=== PATIENT | male | born 1985 | race Caucasian/White ===

== ENCOUNTER 2018-04-29 19:37 | Emergency (ER) | payer MEDICAID ==
[~2018-04-29] VITALS: Ht 182.9 cm; Wt 74.4 kg
[~2018-04-29 19:37] MED LIST: OXYC15TA60 PO
[2018-04-29 19:48] VITALS: BP 120/72
== END 2018-04-29 20:13 | disposition home or self-care (01) ==
LOC: ED 20:07
DX: K02.9 Dental caries, unspecified (principal)
CPT/HCPCS: 99283

== ENCOUNTER 2018-05-20 18:10 | Emergency (ER) | payer MEDICAID ==
[~2018-05-20] VITALS: Ht 182.9 cm; Wt 75.0 kg
[2018-05-20 18:32] VITALS: BP 144/80
[2018-05-20] MEDS ORDERED: KETOROLAC 30 MG/1 ML IM ONE (19:00)
[2018-05-20] MEDS ORDERED: METHOCARBAMOL 750 MG TABLET PO ONE (19:00)
[2018-05-20] MEDS ORDERED: METHOCARBAMOL 750 MG TABLET ONE (19:19)
[2018-05-20] MEDS ORDERED: KETOROLAC 30 MG/1 ML ONE (19:19)
== END 2018-05-20 19:46 | disposition home or self-care (01) ==
LOC: ED 19:40
DX: S39.012A Strain of muscle, fascia and tendon of lower back, initial encounter (principal); X58.XXXA Exposure to other specified factors, initial encounter; Y93.89 Activity, other specified; Y92.89 Other specified places as the place of occurrence of the external cause; Y99.8 Other external cause status; M46.1 Sacroiliitis, not elsewhere classified
CPT/HCPCS: 72110; 96372; 99284; J1885

== ENCOUNTER 2018-06-08 19:13 | Emergency (ER) | payer MEDICAID ==
[~2018-06-08] VITALS: Ht 182.9 cm; Wt 72.9 kg
[2018-06-08 19:16] VITALS: BP 100/67
== END 2018-06-08 19:56 | disposition home or self-care (01) ==
LOC: ED 19:50
DX: K01.1 Impacted teeth (principal); K02.9 Dental caries, unspecified
CPT/HCPCS: 99283

== ENCOUNTER 2018-06-17 18:13 | Emergency (ER) | payer MEDICAID ==
[~2018-06-17] VITALS: Ht 182.9 cm; Wt 73.0 kg
[2018-06-17 18:22] VITALS: BP 112/77
[2018-06-17] MEDS ORDERED: OXYcodone/APAP 5/325MG TABLET ONE (18:44)
[2018-06-17] MEDS ORDERED: OXYcodone/APAP 5/325MG TABLET PO ONE (19:00)
== END 2018-06-17 19:18 | disposition home or self-care (01) ==
LOC: ED 19:00
DX: K01.1 Impacted teeth (principal); K08.89 Other specified disorders of teeth and supporting structures
CPT/HCPCS: 99282

== ENCOUNTER 2019-02-15 08:52 | Emergency (ER) | payer MEDICAID ==
[~2019-02-15] VITALS: Ht 182.9 cm; Wt 69.7 kg
[2019-02-15 10:17] LABS: MICROSCOPIC NOT IND
[2019-02-15 10:27] LABS: CULTURE INDICATED? NO
[2019-02-15 10:32] LABS: BASOPHILS # (AUTO) 0.04 x10^3/uL (0-0.1); BASOPHILS % (AUTO) 1 % (0-1); EOSINOPHILS # (AUTO) 0.18 x10^3/uL (0-0.4); EOSINOPHILS % (AUTO) 3 % (1-7); LYMPHOCYTES # (AUTO) 1.18 x10^3/uL (1-3.4); LYMPHOCYTES % (AUTO) 21 % (22-44); MD NO; MEAN CORPUSCULAR HEMOGLOBIN 31.3 pg (27.5-34.5); MEAN CORPUSCULAR HGB CONC 32.9 g/dL (33.2-36.2); MEAN CORPUSCULAR VOLUME 95.3 fL (81-97); MEAN PLATELET VOLUME 8.4 fL (7.4-10.4); MONOCYTES # (AUTO) 0.29 x10^3/uL (0.2-0.8); MONOCYTES % (AUTO) 5 % (2-9); NEUTROPHILS # (AUTO) 3.93 x10^3/uL (1.8-6.8); NEUTROPHILS % (AUTO) 70 % (42-75); PLATELET COUNT 281 x10^3/uL (130-400); RED BLOOD COUNT 4.58 x10^6/uL (4.38-5.82); RED CELL DISTRIBUTION WIDTH 13.1 % (9.4-14.8)
[2019-02-15 10:42] LABS: ALANINE AMINOTRANSFERASE 16 U/L (12-78); ALBUMIN 4.4 g/dL (3.4-5.0); ANION GAP 5 mmol/L (5-15); CHLORIDE 107 mmol/L (98-107); CREATININE 0.94 mg/dL (0.7-1.3)
[2019-02-15 10:44] LABS: ALKALINE PHOSPHATASE 69 U/L (45-117); BILIRUBIN,TOTAL 0.4 mg/dL (0.2-1.0); TOTAL PROTEIN 7.3 g/dL (6.4-8.2)
[2019-02-15 10:58] VITALS: BP 110/77
--- NOTE | 2019-02-15 10:58 | NUR ---
PT IN ROOM AT THIS TIME. PT RESTING COMFORTABLY WITH NO WANTS OR NEEDS. ALL RESULTS ARE POSTED AND AWAITING MD RECHECK.
[2019-02-16] MEDS ORDERED: TRAZ-137 PO (23:21)
[2019-02-16] MEDS ORDERED: HYDR-3240 PO (23:21)
== END 2019-02-15 11:29 | disposition home or self-care (01) ==
LOC: ED 11:18
DX: R10.31 Right lower quadrant pain (principal)
CPT/HCPCS: 36415; 74021; 80053; 81003; 85025; 99284

== ENCOUNTER 2019-02-16 22:54 | Emergency (ER) | payer MEDICAID ==
[~2019-02-16] VITALS: Ht 182.9 cm; Wt 70.0 kg
[2019-02-16 23:04] VITALS: BP 118/70
--- NOTE | 2019-02-16 23:15 | NUR ---
pt stated " i havnt slept for 3 days, i went to pcp on trazodone prescription but it didnt work for me". mnitor applied, siderails up x2, call light within reach. awaiting erp for eval and orders
[2019-02-16] MEDS ORDERED: HYDR-3240 PO (23:21)
[2019-02-16] MEDS ORDERED: TRAZ-137 PO (23:21)
[2019-02-17] MEDS ORDERED: ZOLPIDEM 5MG TABLET ONE
[2019-02-17] MEDS ORDERED: ZOLPIDEM 10MG TABLET PO ONE
--- NOTE | 2019-02-17 00:03 | NUR ---
PT MEDICATED PER MAR
== END 2019-02-17 00:26 | disposition home or self-care (01) ==
LOC: ED 23:58
DX: F51.01 Primary insomnia (principal)
CPT/HCPCS: 99282

== ENCOUNTER 2019-03-18 21:08 | Emergency (ER) | payer MEDICAID ==
[~2019-03-18] VITALS: Ht 182.9 cm; Wt 71.5 kg
[~2019-03-18 21:08] MED LIST changes: +HYDR-3240 PO; +TRAZ-137 PO
[2019-03-18 21:10] VITALS: BP 130/74
[2019-03-18] MEDS ORDERED: PROPARACAINE OPHTH 0.5%, 15ML LEFTEYE ONE (21:30)
[2019-03-18] MEDS ORDERED: FLUORESCEIN OPHTHALMIC 1 MG STRIP LEFTEYE ONE (21:30)
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
[2019-03-18] MEDS ORDERED: FLUORESCEIN OPHTHALMIC 1 MG STRIP ONE (21:42)
[2019-03-18] MEDS ORDERED: PROPARACAINE OPHTH 0.5%, 15ML ONE (21:42)
--- NOTE | 2019-03-18 21:45 | NUR ---
PT GIVEN ICE PACK AND PT TO CT.
--- NOTE | 2019-03-18 22:49 | NUR ---
Patient/Caregiver given discharge instructions and they have confirmed that they understand the instructions. Patient ambulatory with steady gait.
== END 2019-03-18 22:51 | disposition home or self-care (01) ==
LOC: ED 22:38
DX: S00.11XA Contusion of right eyelid and periocular area, initial encounter (principal); H11.32 Conjunctival hemorrhage, left eye; X58.XXXA Exposure to other specified factors, initial encounter; Y93.89 Activity, other specified; Y92.89 Other specified places as the place of occurrence of the external cause; Y99.8 Other external cause status
CPT/HCPCS: 70486; 99284

== ENCOUNTER 2019-04-11 11:19 | Emergency (ER) | payer MEDICAID ==
[~2019-04-11] VITALS: Ht 182.9 cm; Wt 69.0 kg
[2019-04-11 11:21] VITALS: BP 118/79
== END 2019-04-11 12:34 | disposition home or self-care (01) ==
LOC: ED 12:28
DX: F51.04 Psychophysiologic insomnia (principal); G89.29 Other chronic pain
CPT/HCPCS: 99283

== ENCOUNTER 2019-11-18 19:19 | Emergency (ER) | payer MEDICAID ==
[~2019-11-18] VITALS: Ht 182.9 cm; Wt 80.1 kg
[~2019-11-18 19:19] MED LIST changes: +CHOL500050 BC; +CIPR500T87 PO; +CITA10TA4 PO; +GABA300C10 PO; +MIRT7.5T8 PO; +QUET25TA5 PO; +SLEEPING PILL PO; -TRAZ-137 PO; +TRAZ-175 PO
[2019-11-18 19:32] VITALS: BP 116/72
[2019-11-18] MEDS ORDERED: FLUORESCEIN OPHTHALMIC 1 MG STRIP LEFTEYE ONE (20:00)
[2019-11-18] MEDS ORDERED: PROPARACAINE OPHTH 0.5%, 15ML LEFTEYE ONE (20:00)
[2019-11-18] MEDS ORDERED: FLUORESCEIN OPHTHALMIC 1 MG STRIP ONE (20:12)
[2019-11-18] MEDS ORDERED: PROPARACAINE OPHTH 0.5%, 15ML ONE (20:12)
== END 2019-11-18 20:48 | disposition home or self-care (01) ==
LOC: ED 20:00
DX: H57.12 Ocular pain, left eye (principal); Z90.49 Acquired absence of other specified parts of digestive tract
CPT/HCPCS: 99283

== ENCOUNTER 2019-11-19 16:22 | Emergency (ER) | payer MEDICAID ==
[~2019-11-19] VITALS: Ht 182.9 cm; Wt 81.4 kg
[2019-11-19 16:25] VITALS: BP 123/75
--- NOTE | 2019-11-19 17:19 | NUR ---
PT ASKED ABOUT WAIT TIME. INFORMED PT THAT HE WOULD HAVE TO WAIT LONGER WE DID NOT HAVE AN OPEN ROOM AVAILABLE. PT STATED "I'M JUST GOING TO GO HOME. I DON'T WANT TO WAIT."
--- NOTE | 2019-11-19 17:25 | NUR ---
FINANCIAL SERVICES CONSULTANT: CALLED FOR ROOM, NO ANSWER
--- NOTE | 2019-11-19 17:35 | NUR ---
STEAM DISTRIBUTION SUPERVISOR: CALLED FOR ROOM, NO ANSWER
--- NOTE | 2019-11-19 17:49 | NUR ---
MIXER BLENDER: PT CALLED FOR ROOM, NO ANSWER
== END 2019-11-19 17:51 | disposition left against medical advice (07) ==
LOC: ED 17:30
DX: R07.9 Chest pain, unspecified (principal); Z53.21 Procedure and treatment not carried out due to patient leaving prior to being seen by health care provider
CPT/HCPCS: 93005